=== PATIENT | female | born 1925 | race African-American/Black ===

== ENCOUNTER 2016-10-27 08:16 | Outpatient (CLI) | payer MEDICARE, OTHER ==
[~2016-10-27 08:16] MED LIST: AMLO10TA1 PO; ARIP5TAB10 PO; ASPI81CT27 PO; CAPT25TA10 PO; CARV6.25 PO; DETLA4 PO; DONE5TAB2 PO; LORA10OD3 PO; OSC500 PO; PANT40EC PO; SIMV40TA5 PO; TRAM50TA3 PO
[2016-10-27 08:55] LABS: HEMATOCRIT 35.9 % (36-48); HEMOGLOBIN 11.5 g/dL (12.0-16.0); MEAN CORPUSCULAR HEMOGLOBIN 27 pg (27-31); MEAN CORPUSCULAR VOLUME 85 fL (80-94); WHITE BLOOD COUNT (AUTO) 6.1 K/uL (4.8-10.8)
[2016-10-27 08:56] LABS: BASOPHILS # (AUTO) 0.1 K/uL (0.00-0.22); BASOPHILS % (AUTO) 2.3 % (0.0-2.0); EOSINOPHILS # (AUTO) 0.2 K/uL (0-0.4); EOSINOPHILS % (AUTO) 3.1 % (0.0-4.0); LYMPHOCYTES # (AUTO) 2.2 K/uL (2.5-16.5); LYMPHOCYTES % (AUTO) 36.9 % (20.5-51.1); MEAN CORPUSCULAR HGB CONC 32 g/dL (33-37); MONOCYTES # (AUTO) 0.3 K/uL (0.8-1.0); MONOCYTES % (AUTO) 4.7 % (1.7-9.3); NEUTROPHILS # (AUTO) 3.3 K/uL (1.8-7.7); PLATELET COUNT (AUTO) 290 K/uL (140-450); RED CELL DISTRIBUTION WIDTH 12.7 % (11.6-13.7)
[2016-10-27 09:04] LABS: ALANINE AMINOTRANSFERASE 19 U/L (12-78); ALBUMIN 3.3 g/dL (3.4-5.0); ALKALINE PHOSPHATASE 94 U/L (46-116); ANION GAP 10.7 (8-16); ASPARTATE AMINOTRANSFERASE 17 U/L (15-37); CALCIUM 8.1 mg/dL (8.5-10.1); CARBON DIOXIDE 28.6 mmol/L (21-32); CHLORIDE 109 mmol/L (98-107); CREATININE 0.9 mg/dL (0.6-1.3); GLUCOSE 88 mg/dL (74-106); POTASSIUM 4.3 mmol/L (3.5-5.1); SODIUM SERUM 144 mmol/L (136-145); TOTAL BILIRUBIN 0.6 mg/dL (0.0-1.0); TOTAL PROTEIN, SERUM 7.8 g/dL (6.4-8.2); UREA NITROGEN, BLOOD 20 mg/dL (7-18)
[2016-10-27 09:20] LABS: IRON, SERUM 78 ug/dl (35-150); TOTAL IRON BINDING CAPACITY 263 ug/dl (250-450)
[2016-10-28 09:11] LABS: VITAMIN D, 25-HYDROXY 33.6 ng/mL (30.0-100.0)
[2016-10-28 12:34] LABS: FOLIC ACID 14.7 ng/mL (>3.0)
== END 2016-10-27 19:59 | disposition home or self-care (01) ==
LOC: MLB 08:16
PROVIDERS: ATTEND Internal Medicine Geriatric Medicine
DX: D64.9 Anemia, unspecified (principal); E55.9 Vitamin D deficiency, unspecified; I10 Essential (primary) hypertension; M81.0 Age-related osteoporosis without current pathological fracture
CPT/HCPCS: 36415; 80053; 82306; 82607; 82746; 83540; 85025

== ENCOUNTER 2016-11-26 18:19 | Outpatient (CLI) | payer MEDICARE, OTHER | END 2016-11-26 20:55 | disposition home or self-care (01) | LOC: MRD 18:19 | PROVIDERS: ATTEND Internal Medicine Geriatric Medicine | DX: M25.512 Pain in left shoulder (principal); M25.522 Pain in left elbow; M79.642 Pain in left hand; R10.2 Pelvic and perineal pain; Z91.81 History of falling | CPT/HCPCS: 73030; 73080; 73502 ==